=== PATIENT | male | born 1970 | race Caucasian/White ===

== ENCOUNTER 2024-03-04 11:11 | Emergency (ER) | payer OTHER, BC, SELFPAY ==
[2024-03-04 11:24] VITALS: BP 141/74; PULSE 56; RESP 16; TEMP 36.8; O2SAT 97
--- NOTE | 2024-03-04 11:52 | PC.NURSE ---
approximate meausrements around neck, from side to side about 40cm. goes from mid ant. neck downward. across upper chest about 30cm. goes slightly into left areola. and about 30cm up and down. from bt nipple area down abd. about 25cm. nearly fci to navel. widest across is about 10cm
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
[2024-03-04] MEDS: TETANUS,DIPHTHERIA,AC PERTUSSIS ADULT (0.5 ML) BOOSTRIX IM (12:19)
--- NOTE | 2024-03-04 12:23 | PC.NURSE ---
1209, consultation with [facility]. in progress, provider to provider report given. awaiting recommendations.
--- OUTSIDE RECORDS SUMMARY | 2024-03-05 23:54 | XMS_ITS | Clinical Summary ---
Author Organization [facility] Address [address] [place] [address] Care Team Providers Care Planetarium Sky Show Technician Name Role Phone Jj Mccray MD Primary Care Provider [phone] Source Comments [facility],non-owned Affiliates and Associated Physician Practices is amultiple site organization consisting of ambulatory clinics and hospital sitesin [place], [place], [place] and [place]. This disclosure is being madepursuant to the Care Everywhere program and may not contain all information available regarding this patient. Last updated 17.[facility] Social History Tobacco Use Types Packs/Day Years Used Date Smoking Tobacco: Never Assessed Sex and Gender Information Value Date Recorded Sex Assigned at Not on file Gender Identity Not on file Sexual Orientation Not on file Plan of Treatment Health Maintenance Due Date Last Done Comments COLOGUARD (AGES 45-75) - COL ON CA SCREENING 1972 COLON MONITORING 1972 COLONOSCOPY - COLON CA SCREENING 1972 CT COLONOGRAPHY - COLON CA SCREENING 1972 Colorectal Cancer Screening 1972 FIT - COLON CA SCREENING 1972 FLEX SIG - COLON CA SCREENING 1972 LIPID TESTING 1972 HIV SCREENING 11/02/1987 HEPATITIS C SCREENING 10/28/1990 DTAP/TDAP/TD VACCINES (1 - Tdap) 11/02/1991 HEPATITIS B VACCINE (1 of 3 - 19+ 3-dose series) 11/02/1991 PNEUMOCOCCAL VACCINE 50+ (1 of 1 - PCV) 2022 ZOSTER VACCINE (1 of 2) 2022 COVID-19 VACCINE ( - 2023-2 5 season) 2023 INFLUENZA VACCINE (#1) 2023 DEPRESSION SCREENING 02/12/2024 HIB VACCINE Aged Out No longer eligi ble based on patient's age to complete this topic HPV VACCINE Aged Out No longer eligi ble based on patient's age to complete this topic MENINGOCOCCAL (Group B) VACCINE Aged Out No longer eligible based on patient's age to complete this topic MENINGOCOCCAL VACCINE Aged Out No gricel tanika eligible based on patient's age to complete this topic PNEUMOCOCCAL VACCINE Aged Out No long er eligible based on patient's age to complete this topic Care Teams Planetarium Sky Show Technician Relationship Specialty Start Date End Date Jj Mccray MD [address] [facility] [address] [place] [phone] PCP - General 08/10/19
--- OUTSIDE RECORDS SUMMARY | 2024-03-05 23:54 | XMS_ITS | Encounter Summary ---
Author Organization [facility] Address [address] [place] [address] Care Team Providers Care Veterinary Surgery Technician Name Role Phone Jj Mccray MD Primary Care Provider [phone] Encounter Details Date Type Department Care Team (Late st Contact Info) Description 07/10/2019 Lab Requisition [facility] DermPath Lab [address] [id number] Jone Cruz MD [address] [place] [address] Social History Tobacco Use Types Packs/Day Years Used Date Smoking Tobacco: Never Assessed Sex and Gender Information Value Date Recorded Sex Assigned at Not on file Gender Identity Not on file Sexual Orientation Not on file documented as of this encounter Plan of Treatment Not on file documented as of this encounter Procedures Procedure Name Priority Date/Time Associated Diagnosis Comments DERMATOPATHOLOGY Routine 07/08/2019 12:0 0 AM CDT documented in this encounter Results * DERMATOPATHOLOGY (07/08/2019 12:00 AM CDT) Case Report Dermatopathology Report ? Case: [id number] ? Authorizing Provider: ??Jone Cruz MD ?Collected: ? 07/08/2019 12:00 AM ? Ordering Location: ? [facility]erm[facility] Lab ?Received: ?07/10/2019 08:58 AM ? Pathologist: ? Elina Thompson MD ? Specimen: ?Skin, left upper back ? 0 12:06 PM T DERMATOPATHOLOGY LABORATORY Final Diagnosis Specimen A. SKIN, left upper back: BASAL CELL CARCINOMA, NODULAR TYPE (C44.519) 0 12:06 PM [facility] DERMATOPATHOLOGY LABORATORY Clinical History BCCA. Path # [id number]. 0 12:06 PM [facility] DERMATOPATHOLOGY LABORATORY Gross Description Specimen A: Received is one formalin filled container labeled with the patient's name and designated left upper back. The specimen consists of a shave biopsy measuring [id number]. Jar 0. 0 12:06 PM T DERMATOPATHOLOGY LABORATORY Microscopic Description Specimen A. SKIN, left upper back: Within the dermis there are aggregates of basaloid cells with a high nuclear to cytoplasmic ratio and peripheral palisading. 0 12:06 PM T DERMATOPATHOLOGY LABORATORY Disclaimer An external and internal positive and negative controls are appropriate for the histochemical, immunohistochemical and immunofluorescence stain(s) in this case (if any), except where stated explicitly. The performance characteristics of the stain(s) cited in this report were developed and its performance characteristic determined by the Dermatopathology Laboratory at [facility], directed by Dr. Barrie Ambrocio. These tests need not be, and therefore are not, approved by the [place] Food and Drug Administration. The tests are used for clinical purposes. Billing Codes Specimen Charges Stain Charges 68154 1 0 12:06 PM CDT DERMATOPATHOLOGY LABORATORY Embedded Images 0 12:06 PM CDT DERMATOPATHOLOGY LABORATORY Pathology/Cytolog y TISSUE SPECIMEN FROM SKIN / Unknown 07/08/2019 07/10/2019 8:58 AM CDT Jone Cruz MD LAB - PATHOLOGY/CYTO LOGY ORDERABLES DERMATOPATHOLOGY LABORATORY [facility] - Department of Dermatology [facility]/[address] [phone] documented in this encounter Visit Diagnoses Not on filedocumented in this encounter Care Teams Veterinary Surgery Technician Relationship Specialty Start Date End Date Jj Mccray MD [address] [facility] [address] [place] [phone] PCP - General 08/10/19 documented as of this encounter
--- OUTSIDE RECORDS SUMMARY | 2024-03-05 23:54 | XMS_ITS | Encounter Summary ---
Author Organization [facility] Address [facility] [facility] [place], [place] [address] [place] [address] Care Team Providers Care Primary Therapist Name Role Phone Andres Izaguirre MD Primary Care Provider + Savita Mallory Primary Care Provider [phone] Andres Izaguirre MD Primary Care Provider + Yumiko Randolph Primary Care Provider [phone] Encounter Details Date Type Department Care Team (Late st Contact Info) Description 07/27/2016 Abstract [facility] Andres Izaguirre MD [address] [phone] Social History Tobacco Use Types Packs/Day Years Used Date Smoking Tobacco: Never Assessed Sex and Gender Information Value Date Recorded Sex Assigned at Not on file Legal Sex Male 4:31 PM CDT Gender Identity Not on file Sexual Orientation Not on file documented as of this encounter Miscellaneous Notes * Letter - Andres Izaguirre MD - 07/27/2016 12:00 AM CDT Jul 27, 2016 Carlton Roy [id number] [place] [id number] Dear Carlton Roy, Thank you for choosing [facility] for your health care needs. We appreciate the opportunity to help you maintain your well being. You recently had labs drawn. Your results came back normal. Please remember to follow up as discussed at your last appointment .If you have any questions please feel free to call the office at [phone], Option #3 or Option #1 to make an appointment to discuss these results. Respectfully Yours, Electronically Signed by: Andres Izaguirre MD Cc: Patients Medical Record E BOARDER documented in this encounter Plan of Treatment Upcoming Encounters Date Type Department Care Team (Late st Contact Info) Description 03/09/2024 2:40 PM SKATE BOARDER Office Visit [facility] [address] [address] Yumiko Randolph PA [address] [place] [address] documented as of this encounter Visit Diagnoses Not on filedocumented in this encounter Additional Health Concerns Infection Onset Date Last Indicated Resolved Time COVID-19 Rule Out 12/03/2019 12/03/2019 12/06/2019 4:20 AM CDT COVID-19 Confirmed 12/03/2019 12/03/2019 0 12:35 AM SKATE BOARDER documented as of this encounter Care Teams Primary Therapist Relationship Specialty Start Date End Date Andres Izaguirre MD [address] [place] [phone] PCP - General FAMILY PRACTICE 02/05/18 11/16/18 Savita Mallory FNP [address] [place] [address] PCP - General Nurse Practitioner Family 11/17/1810/12 Andres Izaguirre MD [address] [place] [address] PCP - General FAMILY PRACTICE 10/30/20 11/27/20 Yumiko Randolph PA [address] [place] [address] PCP - General PHYSICIAN PERSONNEL RECRUITER 11/28/20 documented as of this encounter
--- OUTSIDE RECORDS SUMMARY | 2024-03-05 23:54 | XMS_ITS | Referral Summary ---
Author Organization [facility] Address [address] [place] [address] Care Team Providers Care Cell Efficiency Supervisor Name Role Phone Jj Mccray MD Primary Care Provider [phone] Source Comments [facility],non-owned Affiliates and Associated Physician Practices is amultiple site organization consisting of ambulatory clinics and hospital sitesin [place], [place], [place] and [place]. This disclosure is being madepursuant to the Care Everywhere program and may not contain all information available regarding this patient. Last updated 17.[facility] Social History Tobacco Use Types Packs/Day Years Used Date Smoking Tobacco: Never Assessed Sex and Gender Information Value Date Recorded Sex Assigned at Not on file Gender Identity Not on file Sexual Orientation Not on file Plan of Treatment Not on file Care Teams Cell Efficiency Supervisor Relationship Specialty Start Date End Date Jj Mccray MD [address] [place] [phone] PCP - General 08/10/19
--- OUTSIDE RECORDS SUMMARY | 2024-03-05 23:54 | XMS_ITS | Referral Summary ---
Author Organization [facility] Address [address] [place] [address] Care Team Providers Care Second Mate Name Role Phone Yumiko Randolph Primary Care Provider [phone] Allergies No known active allergies Medications metoprolol tartrate (LOPRESSOR) 50 mg immediate release tablet Take 1 tablet (50 mg total) by mouth 2 (two) times a day 03/18/2023 Active pravastatin (PRAVACHOL) 40 mg tablet Take 1 tablet (40 mg total) by mouth daily 03/18/2023 Active clindamycin (CLEOCIN) 150 mg capsule Take 1 capsule (150 mg total) by mouth 4 (four) times a day 05/10/2023 Active Active Problems No known active problems Social History Tobacco Use Types Packs/Day Years Used Date Smoking Tobacco: Never Smokeless Tobacco: Never Tobacco Cessation:Counseling Given: Not Answered AUDIT-C Answer Date Recorded Q1: How often do you have a drink containing alc ohol? 2-4 times a month 06/10/2023 Q2: How many drinks containi ng alcohol do you have on a typical day when you are drinking? 5 or 6 06/10/2023 Q3: How often do you have si x or more drinks on one occasion? Less than monthly 06/10/2023 Personal Safety Answer Date Recorded Have you ever been in or are you currently in a harmful physical or emotional relationship or is someone making you feel afraid or unsafe? Denies 06/10/2023 Sex and Gender Information Value Date Recorded Sex Assigned at Not on file Legal Sex Male 1:38 PM CDT Gender Identity Not on file Sexual Orientation Not on file Last Filed Vital Signs Vital Sign Reading Time Taken Comments Blood Pressure 113/55 06/10/2023 8:35 AM CDT Pulse 49 06/10/2023 8:35 AM CDT Temperature 36.9 ??C (98.5 ??F) 06/10/2023 7:00 AM CD T Respiratory Rate 16 06/10/2023 8:35 AM CDT Oxygen Saturation 94% 06/10/2023 8:35 AM CDT Inhaled Oxygen Concentration - - Weight 145.2 kg (320 lb) 06/10/2023 7:00 AM CDT Height 185.4 cm (6' 1 ) 06/10/2023 7:00 AM CDT Body Mass Index 42.22 06/10/2023 7:00 AM CDT Plan of Treatment Not on file Procedures Procedure Name Priority Date/Time Associated Diagnosis Comments COLONOSCOPY 06/10/2023 7:46 AM CDT from Last 3 Months or Most Recently Relevant to Health Maintenance Results * Colonoscopy (06/10/2023 7:46 AM CDT) Anatomical Region Laterality Modality Other Narrative Procedure Note Olivier Sanabria MD - 06/10/2023 7:46 AM CDT ENDOSCOPY LAB Patient Name: Carlton Roy Procedure Date: 06/10/2023 7:46 AM Admit Type: Outpatient Room: [facility] 8 Date of : 1970 Instrument Name: [id number] Gender: Male Note Status: Finalized Procedure: Colonoscopy Indications: Screening for colorectal malignant neoplasm Providers: Olivier Sanabria M.D. Referring MD: Yumiko Randolph PA-C Medicines: Propofol per Anesthesia Complications: No immediate complications. Estimated Blood Loss: Estimated blood loss: none. Procedure: Pre-Anesthesia Assessment: - Pre-procedure physical examination revealed no contraindications to sedation. - The risks and benefits of the procedure and the sedation options and risks were discussed with the patient. All questions were answered and informed consent was obtained. The benefits, risks and alternatives of theprocedure and sedation were discussed and informed consentwas obtained. All questions were answered. Please referto the signed informed consent document in the medical record. The scope was passed under direct vision.The Colonoscope was introduced through the anus and advanced to the the cecum, identified byappendiceal orifice and ileocecal valve. The colonoscopy was performed without difficulty. The patient tolerated the procedure well. The quality of the bowel preparation was excellent. The quality of the bowel preparation was evaluated using the BBPS (BostonBowel Preparation Scale) with scores of: Right Colon = 3 (entire mucosa seen well with no residual staining, small fragments of stool or opaque liquid),Transverse Colon = 3 (entire mucosa seen well with no residual staining, small fragments of stool or opaqueliquid) and Left Colon = 3 (entire mucosa seen well with no residual staining, small fragments of stool oropaque liquid). The total BBPS score equals 9. The bowel preparation used was polyethylene glycol (PEG) via split dose instruction. Bowel prep was administered using a split dose. Bowel prep was administeredusing a split dose. Findings: A 6 mm polyp was found in the rectum. The polyp was sessile. Thepolyp was removed with a jumbo cold forceps. Resection and retrieval were complete. Internal hemorrhoids were found during retroflexion. Impression: - One 6 mm polyp in the rectum, removed with ajumbo cold forceps and retrieved. - Internal hemorrhoids. Recommendation: - Await pathology results. - Repeat colonoscopy in 5 years for surveillance. Electronically signed by Olivier Sanabria MD Olivier Sanabria M.D. 06/10/2023 8:18:28 AM Number of Addenda: 0 Note Initiated On: 06/10/2023 7:46 AM Scope Withdrawal Time: 0 hours 11 minutes 19 seconds Scope In: 7:52:35 AM Scope Out: 8:16:30 AM Olivier Sanabria MD ENDOSCOPY PROCEDURES Final Result from Last 3 Months or Most Recently Relevant to Health Maintenance Insurance [employer] [facility] Advance Directives For more information, please contact: [phone] * Full Code (Latest Code Status on File) Date Activated Date Inactivated Comments 06/10/2023 6:54 AM 06/10/2023 1:01 PM Care Teams Second Mate Relationship Specialty Start Date End Date Yumiko Randolph PA [address] [facility] [address] [place] [address] PCP - General Physician Financial Analyst Accountant 05/31/23
--- OUTSIDE RECORDS SUMMARY | 2024-03-05 23:54 | XMS_ITS | Patient Health Summary ---
Author Organization [facility] Address [address] [place] [address] Care Team Providers Care Dry Cleaning Manager Name Role Phone Jj Mccray MD Primary Care Provider Note from [facility],non-owned Affiliates and Associated Physician Practices is amultiple site organization consisting of ambulatory clinics and hospital sitesin [place], [place], [place] and [place]. This disclosure is being madepursuant to the Care Everywhere program and may not contain all information available regarding this patient. Last updated 17.[facility] Social History Tobacco Use Types Packs/Day Years Used Date Smoking Tobacco: Never Assessed Sex and Gender Information Value Date Recorded Sex Assigned at Not on file Gender Identity Not on file Sexual Orientation Not on file Procedures * DERMATOPATHOLOGY(Performed 08/06/2019) * DERMATOPATHOLOGY(Performed 07/08/2019) Results * DERMATOPATHOLOGY (08/06/2019 12:00 AM CDT) Only the most recent of2 resultswithin the time period is included. Case Report Dermatopathology Report ? Case: [id number] ? Authorizing Provider: ??Jone Cruz MD ?Collected: ? 08/06/2019 12:00 AM ? Ordering Location: ? [facility] ?Received: ?08/10/2019 06:36 AM ? Pathologist: ? Elina Thompson MD ? Specimen: ?Skin, left upper back ? 0 3:25 PM CDT DERMATOPATHOLOGY LABORATORY Final Diagnosis Specimen A. SKIN, left upper back: DERMAL SCAR RESIDUAL BASAL CELL CARCINOMA NOT IDENTIFIED (L90.5) INTRADERMAL MELANOCYTIC NEVUS, INCIDENTAL; NOT PRESENT AT MARGIN (D22.5) (see microscopic description) 0 3:25 PM CDT DERMATOPATHOLOGY LABORATORY Clinical History BCCA, NOD. Path#[id number] 0 3:25 PM CDT DERMATOPATHOLOGY LABORATORY Gross Description Specimen A: Received is one formalin filled container labeled with the patient's name and designated left upper back. The specimen consists of a non-oriented ellipse of skin measuring 10g16n02 mm. The epidermal surface is unremarkable. The margin is inked green. The 12 o'clock and 6 o'clock tips are submitted in cassette 1. The remainder of the ellipse is serially sectioned and submitted in cassette 2-3. Jar 0. 0 3:25 PM CDT DERMATOPATHOLOGY LABORATORY Microscopic Description Specimen A. SKIN, left upper back: There are fibroblasts and collagen bundles oriented parallel to the skin surface. There are elongated blood vessels, some of which are oriented perpendicular to the skin surface. No basal cell carcinoma is identified. In block A3, there are incidental nests of cytologically bland melanocytes within the dermis that mature with depth. This lesion is not present at the margin of the specimen. 0 3:25 PM CDT DERMATOPATHOLOGY LABORATORY Disclaimer An external and internal positive and negative controls are appropriate for the histochemical, immunohistochemical and immunofluorescence stain(s) in this case (if any), except where stated explicitly. The performance characteristics of the stain(s) cited in this report were developed and its performance characteristic determined by the Dermatopathology Laboratory at [facility], directed by Dr. Barrie Ambrocio. These tests need not be, and therefore are not, approved by the [place] Food and Drug Administration. The tests are used for clinical purposes. Billing Codes Specimen Charges Stain Charges 89139 1 0 3:25 PM CDT DERMATOPATHOLOGY LABORATORY Embedded Images 0 3:25 PM CDT DERMATOPATHOLOGY LABORATORY Pathology/Cytolog y TISSUE SPECIMEN FROM SKIN / Unknown 08/06/2019 08/10/2019 6:36 AM CDT Jone Cruz MD LAB - PATHOLOGY/CYTO LOGY ORDERABLES DERMATOPATHOLOGY LABORATORY [facility] - Department of Dermatology [facility]/[address] [phone] Care Teams Dry Cleaning Manager Relationship Specialty Start Date End Date Jj Mccray MD [address] [place] [phone] PCP - General 08/10/19
--- OUTSIDE RECORDS SUMMARY | 2024-03-05 23:54 | XMS_ITS | Clinical Summary ---
Author Organization [facility] Address [address] [place] [address]. [place] [address] [place] [address] Care Team Providers Care Sucker Machine Operator Name Role Phone Yumiko Randolph Primary Care Provider [phone] Allergies No known active allergies Medications citalopram (CELEXA) 20 MG tabletIndicatio ns:Mood disorder (CMS/HCC) Take 1 tablet (20 mg total) by mouth daily. 90 tablet 3 03/18/2023 Active pravastatin (PRAVACHOL) 40 MG tabletIndicatio ns:Hyperlipidem ia, mixed Take 1 tablet (40 mg total) by mouth nightly at bedtime. 90 tablet 3 03/18/2023 Active metoprolol tartrate (LOPRESSOR) 50 MG tabletIndicatio ns:Hypertension , essential Take 1 tablet (50 mg total) by mouth 2 (two) times daily. 180 tablet 3 03/18/2023 Active Active Problems Problem Noted Date Diagnosed Date Essential hypertension 11/17/2018 Hyperlipidemia 11/17/2018 Mood disorder 10/08/2016 Resolved Problems Problem Noted Date Diagnosed Date Resolved Date Screening for colon cancer 05/03/2023 0 05/06/2023 Screening for colon cancer 05/03/2023 0 05/20/2023 Encounters Date Type Department Care Team Description 12/24/2023 Scan [facility] INFO [facility] Scanned, Doc Med Group from Last 3 Months Immunizations Name Administration Dates Next Due Tdap (Boostrix) 02/17/2014 Tdap (Generic) 02/17/2014 Family History Medical History Relation Comments Cancer Father disseminated cho checo carcinoma Cancer Maternal Grandfather prostate, l sukhdev Cancer Mother ductal carcinoma Relation Status Comments Father Maternal Grandfather Mother Social History Tobacco Use Types Packs/Day Years Used Date Smoking Tobacco: Never Smokeless Tobacco: Never Tobacco Cessation:Counseling Given: No Alcohol Use Standard Drinks/Week Comments Yes 0 (1 standard drink = 0.6 oz pur e alcohol) socially AUDIT-C Answer Date Recorded Frequency of Alcohol Consumption 2-4 times a sat02/06/2018 Average Number of Drinks 5 or 6 018 Frequency of Binge Drinking Monthly 01/12 PHQ-2 Answer Date Recorded Patient Health Questionnaire-2 Score 0 03/18/2023 Sex and Gender Information Value Date Recorded Sex Assigned at Not on file Legal Sex Male 4:31 PM CDT Gender Identity Not on file Sexual Orientation Not on file Last Filed Vital Signs Vital Sign Reading Time Taken Comments Blood Pressure 132/84 03/18/2023 4:29 PM LEAVE MANAGER Pulse 60 03/18/2023 4:29 PM LEAVE MANAGER Temperature 36.3 ??C (97.3 ??F) 03/18/2023 4:29 PM CS T Respiratory Rate 18 03/18/2023 4:29 PM LEAVE MANAGER Oxygen Saturation 94% 03/18/2023 4:29 PM LEAVE MANAGER Inhaled Oxygen Concentration - - Weight 152.5 kg (336 lb 3.2 oz) 03/18/2023 4:29 PM LEAVE MANAGER Height 180.3 cm (5' 11 ) 03/18/2023 4:29 PM LEAVE MANAGER Body Mass Index 46.89 03/18/2023 4:29 PM LEAVE MANAGER Plan of Treatment Upcoming Encounters Date Type Department Care Team (Late st Contact Info) Description 03/09/2024 2:40 PM LEAVE MANAGER Office Visit [facility] [address] [place] [address] Yumiko Randolph PA [address] [place] [address] Health Maintenance Due Date Last Done Comments Hepatitis B Vaccines (1 of 3 - 19+ 3-dose series) 11/02/1991 Zoster Vaccines (1 of 2) 2022 COVID-19 Vaccine (2023-2 5 season) 2023 Influenza Adult (#1) 2023 DTaP, Tdap and Td Vaccines ( 3 - Td or Tdap) 02/18/2024 02/17/2014, 02/17/2014 Annual Physical 03/18/2024 03/18/2023, 11/30/2021, 03/13/2018 PHQ-2 (Physician [place]) 03/18/2024 03/18/2023 Colorectal Cancer Screening Colonoscopy (10 Years) 06/10/2028 06/10/2023 Hepatitis C Completed 12/16/2021 Meningococcal B Vaccine Aged Out No l onger eligible based on patient's age to complete this topic Meningococcal Vaccine Aged Out No gricel tanika eligible based on patient's age to complete this topic Pneumococcal Vaccine: Pediatrics (0 to 5 Years) and At-Risk Patients (6 to 64 Years) Aged Out No longer eligible b ased on patient's age to complete this topic RSV Immunizations Under 20 Months Aged Out No longer eligible b ased on patient's age to complete this topic Procedures Procedure Name Priority Date/Time Associated Diagnosis Comments COLONOSCOPY GENERIC (SCAN ORDER) 06/10/2023 HEPATITIS C ANTIBODY Routine 12/16/2021 11:04 AM CDT Well adult exam Need for hepatitis C screening test from Last 3 Months or Most Recently Relevant to Health Maintenance Results * COLONOSCOPY GENERIC (SCAN ORDER) (06/10/2023) 06/10/2023 us [facility] Scanned SCANNING Final Resu lt * HEPATITIS C AB ([facility] ONLY) (12/16/2021 11:04 AM CDT) HEPATITIS C AB NON-REACTI VE NON-REACTI VE 12/17/2021 2:02 PM LEAVE MANAGER [facility] 12/16/2021 11:0 4 AM CDT us Yumiko [facility] Final Result [facility] [address] [facility] [place] [address], from Last 3 Months or Most Recently Relevant to Health Maintenance Insurance [facility] Care Teams Sucker Machine Operator Relationship Specialty Start Date End Date Yumiko Randolph PA [address] [place] [id number] PCP - General PHYSICIAN STOCK LETTERER 11/28/20
--- OUTSIDE RECORDS SUMMARY | 2024-03-05 23:54 | XMS_ITS | Clinical Summary ---
Author Organization [facility] Address [address] [place] [address] Care Team Providers Care Special Education Teachers Name Role Phone Yumiko Randolph Primary Care Provider [phone] Allergies No known active allergies Medications metoprolol [...] Active Active Problems No known active problems Surgical History Surgery Date Site/Laterality Comments UMBILICAL HERNIA REPAIR Medical History Medical History Date Comments Hypertension Hyperlipidemia Social History Tobacco Use Types Packs/Day Years [...] on file Sexual Orientation Not on file Obstetrics History Last Filed Vital Signs Vital Sign Reading [...] 06/10/2023 7:00 AM CDT Plan of Treatment Health Maintenance Due Date Last Done Comments Depression Screening 1972 Hepatitis C Screening 1972 Prostate Cancer Screening-PSA 1972 Hepatitis B Screening 1990 Regular Well Visit/Exam 18-64 1990 Zoster Vaccine (1 of 2) 2022 Influenza Vaccine (#1) 2023 DTaP/Tdap/Td Vaccine (2 - Td or Tdap) 02/18/2024 02/17/2014 Colon Cancer Screening-Colonoscopy 06/09/20332023 Pneumococcal vaccine <65 Aged Out No longer eligible based on [...] 06/10/2023 7:46 AM Admit Type: Outpatient Room: [facility] Date of : 1970 Instrument Name: [id number] Gender: Male Note Status: Finalized Procedure: Colonoscopy [...] Most Recently Relevant to Health Maintenance Insurance [facility] Advance Directives For more information, please contact: [phone] * Full Code (Latest Code Status on File) Date Activated Date Inactivated Comments 06/10/2023 6:54 AM 06/10/2023 1:01 PM Care Teams Special Education Teachers Relationship Specialty Start Date End Date Yumiko Randolph PA [address] [place] [address] PCP - General Physician Double Bass Player 05/31/23
--- OUTSIDE RECORDS SUMMARY | 2024-03-05 23:54 | XMS_ITS | Encounter Summary ---
Author Organization [facility] Address [address] [place] [address]. [place], [place] [address] [place] [address] Care Team Providers Care Hurl Shaker Name Role Phone Andres Izaguirre MD Primary Care Provider + Savita Mallory Primary Care Provider [phone] Andres Izaguirre MD Primary Care Provider + Yumiko Randolph Primary Care Provider [phone] Encounter Details Date Type Department Care Team (Late st Contact Info) Description 08/03/2002 Abstract [facility] Conversion Md, Generic Conversion, Social History Tobacco Use Types Packs/Day Years Used Date Smoking Tobacco: Never Assessed Sex and Gender Information Value Date Recorded Sex Assigned at Not on file Legal Sex Male 4:31 PM CDT Gender Identity Not on file Sexual Orientation Not on file documented as of this encounter Plan of Treatment Upcoming Encounters Date Type Department Care Team (Late st Contact Info) Description 03/09/2024 2:40 PM HOT DIP GALVANIZER Office Visit [facility] [address] [place] [phone] Yumiko Randolph PA [address] [place] [address] documented as of this encounter Visit Diagnoses Not on filedocumented in this encounter Additional Health Concerns Infection Onset Date Last Indicated Resolved Time COVID-19 Rule Out 12/03/2019 12/03/2019 12/06/2019 4:20 AM CDT COVID-19 Confirmed 12/03/2019 12/03/2019 0 12:35 AM HOT DIP GALVANIZER documented as of this encounter Care Teams Hurl Shaker Relationship Specialty Start Date End Date Andres Izaguirre MD [address] [place] [phone] PCP - General FAMILY PRACTICE 02/05/18 11/16/18 Savita Mall[place] FNP [address] [place], [place] [phone] PCP - General Nurse Practitioner Family 11/17/1810/12 Andres Izaguirre MD [address] [facility] [address] [place] [phone] PCP - General FAMILY PRACTICE 10/30/20 11/27/20 Yumiko Randolph PA [address] [facility], [place] [phone] PCP - General PHYSICIAN CHROME TANNER 11/28/20 documented as of this encounter
--- OUTSIDE RECORDS SUMMARY | 2024-03-05 23:54 | XMS_ITS | Encounter Summary ---
Author Organization [facility] Address [address] [place] [address] Care Team Providers Care Customer Service Administrator Name Role Phone Jj Mccray MD Primary Care Provider [phone] Encounter Details Date Type Department Care Team (Late st Contact Info) Description 08/10/2019 Lab Requisition [facility] Derm[facility] Lab [address] [place] [phone] Jone Cruz MD [address] [place] [address] Social History Tobacco Use Types Packs/Day Years Used Date Smoking Tobacco: Never Assessed Sex and Gender Information Value Date Recorded Sex Assigned at Not on file Gender Identity Not on file Sexual Orientation Not on file documented as of this encounter Plan of Treatment Not on file documented as of this encounter Procedures Procedure Name Priority Date/Time Associated Diagnosis Comments DERMATOPATHOLOGY Routine 08/06/2019 12:0 0 AM CDT documented in this encounter Results * DERMATOPATHOLOGY (08/06/2019 12:00 AM CDT) Case Report Dermatopathology Report ? Case: [id number] ? Authorizing Provider: ??Jone Cruz MD ?Collected: ? 08/06/2019 12:00 AM ? Ordering Location: ? [facility]erm[facility] ?Received: ?08/10/2019 06:36 AM ? [...] CDT DERMATOPATHOLOGY LABORATORY Clinical History BCCA, NOD. Path#[id number] 0 3:25 PM CDT DERMATOPATHOLOGY LABORATORY Gross Description Specimen A: Received is one formalin filled container labeled with the patient's name and designated left upper back. The specimen consists of a non-oriented ellipse of skin measuring 67q50n24 mm. The epidermal surface is unremarkable. The [...] characteristic determined by the Dermatopathology Laboratory at [facility], directed by Dr. Barrie Ambrocio. These tests need not be, and therefore are not, approved by the [place] Food and Drug Administration. The tests are used for clinical purposes. Billing Codes Specimen Charges Stain Charges 73662 1 0 3:25 PM CDT DERMATOPATHOLOGY LABORATORY Embedded Images 0 3:25 PM CDT DERMATOPATHOLOGY LABORATORY Pathology/Cytolog y TISSUE SPECIMEN FROM SKIN / Unknown 08/06/2019 08/10/2019 6:36 AM CDT Jone Cruz MD LAB - PATHOLOGY/CYTO LOGY ORDERABLES DERMATOPATHOLOGY LABORATORY [facility] - Department of Dermatology [facility] Ref[facility]/[address] [phone] documented in this encounter Visit Diagnoses Not on filedocumented in this encounter Care Teams Customer Service Administrator Relationship Specialty Start Date End Date Jj Mccray MD [address] [facility] [address] [place] [phone] PCP - General 08/10/19 documented as of this encounter
== END 2024-03-04 13:50 | disposition home or self-care (01) ==
PROVIDERS: Emergency Provider Nurse Practitioner
DX: T20.27XA Burn of second degree of neck, initial encounter (principal); T21.21XA Burn of second degree of chest wall, initial encounter; X11.8XXA Contact with other hot tap-water, initial encounter; Y99.0 Civilian activity done for income or pay; Z23 Encounter for immunization; E78.5 Hyperlipidemia, unspecified; I10 Essential (primary) hypertension
CPT/HCPCS: 90471; 90715; 99213; G0463